=== PATIENT | female | born 1930 | race Caucasian/White ===

== ENCOUNTER 2018-01-27 06:23 | Inpatient (IN) | payer MEDICARE, BC ==
[2018-01-27] MEDS: CEFAZOLIN 2 GM/50 ML (PMX) 50 ML IVPB (05:30)
[2018-01-27] MEDS: TRANEXAMIC ACID 1,000 MG in DEXTROSE 5% 100 ML IVPB (05:30)
[~2018-01-27 06:23] MED LIST: BUPIVACAINE 0.5% (SDV) 30 ML, morphine SULFATE (PF) 8 MG, EPINEPHrine 0.3 MG, KETOROLAC... IRR
[2018-01-27] MEDS: DEXAMETHASONE 1 MG TAB PO (08:16)
[2018-01-27] MEDS: LACTATED RINGER'S 1,000 ML IV* (08:17)
[2018-01-27] MEDS ORDERED: MIDAZOLAM 1 MG/ML 2 ML INJ (09:09)
[2018-01-27] MEDS ORDERED: ROPIVACAINE 0.5 % 30 ML VIAL (09:09)
[2018-01-27] MEDS: POLYMYXIN/BACITRACIN 1L IRRIG (09:18)
[2018-01-27] MEDS: CA CHLORIDE 10% 10 ML SYRINGE (09:18)
[2018-01-27] MEDS: THROMBIN 5000 UNIT VIAL (09:18)
[2018-01-27] MEDS: BUPIVACAINE 0.5%/EPI (SDV) 30 ML INJ (09:18)
[2018-01-27] MEDS ORDERED: SUCCINYLCHOLINE CHLORIDE 100 MG/5 ML SYG IV (09:55)
[2018-01-27] MEDS ORDERED: ROCURONIUM 50 MG INJ (09:55)
[2018-01-27] MEDS ORDERED: PROPOFOL 20 ML (09:55)
[2018-01-27] MEDS ORDERED: SUGAMMADEX SODIUM 200 MG/2 ML VIAL IV (09:55)
[2018-01-27] MEDS ORDERED: CEFAZOLIN 1 GM INJ (09:55)
[2018-01-27] MEDS ORDERED: LIDOCAINE 100 MG SYRINGE (09:55)
[2018-01-27] MEDS ORDERED: hydrALAzine 20 MG INJ (11:27)
[2018-01-27] MEDS ORDERED: DIPHENHYDRAMINE 50 MG INJ IV ×2 (11:30→12:00)
[2018-01-27] MEDS ORDERED: FENTAnyl 50 MCG/ML VIAL IV (11:30)
[2018-01-27] MEDS ORDERED: METOCLOPRAMIDE 10 MG INJ IV (11:30)
[2018-01-27] MEDS ORDERED: ONDANSETRON 4 MG INJ IV ×2 (11:30→12:00)
[2018-01-27] MEDS ORDERED: HYDROmorphONE 1 MG/5 ML IV SYRINGE IV ×2 (11:30)
[2018-01-27] MEDS ORDERED: MEPERIDINE 25 MG INJ IV (11:30)
[2018-01-27] MEDS: CEFAZOLIN 1 GM/50 ML (PMX) 50 ML IVPB ×2 (11:59→20:53)
[2018-01-27] MEDS: DEXAMETHASONE 2 MG TAB PO ×2 (12:00→18:13)
[2018-01-27] MEDS ORDERED: ZOLPIDEM 5 MG TAB PO (12:00)
[2018-01-27] MEDS ORDERED: MAGNESIUM HYDROXIDE 30ML CUP PO (12:00)
[2018-01-27] MEDS ORDERED: KETOROLAC 15 MG INJ IV (12:00)
[2018-01-27] MEDS ORDERED: ACETAMINOPHEN 500 MG TAB PO (12:00)
[2018-01-27] MEDS: TRANEXAMIC ACID 1,000 MG in DEXTROSE 5% 100 ML IV (12:22)
[2018-01-27] MEDS: ATORVASTATIN 20 MG TAB PO (20:53)
[2018-01-27] MEDS: SENNA/DOCUSATE NA (8.6MG/50MG) TAB PO (20:53)
[2018-01-27] MEDS: GABAPENTIN 300 MG CAP PO (20:54)
[2018-01-27] MEDS: morphine 2 MG INJ IV (22:38)
[2018-01-28] MEDS: DEXAMETHASONE 2 MG TAB PO ×2 (00:18→05:43)
[2018-01-28] MEDS: morphine 2 MG INJ IV ×2 (00:35→03:44)
[2018-01-28] MEDS: OXYCODONE/ACETAMINOPHEN (5/325) TAB PO ×3 (01:52→11:26)
[2018-01-28] MEDS: CEFAZOLIN 1 GM/50 ML (PMX) 50 ML IVPB (03:57)
[2018-01-28] MEDS: SENNA/DOCUSATE NA (8.6MG/50MG) TAB PO (08:57)
[2018-01-28] MEDS: ASPIRIN 81 MG TAB PO (08:57)
[2018-01-28] MEDS: VALSARTAN 160 MG TAB PO (08:58)
[2018-01-28] MEDS ORDERED: morphine LIQ (10 MG/5 ML) CUP PO ×2 (15:00)
== END 2018-01-28 12:00 | disposition home health service (06) | DRG 483 ==
LOC: REC 06:23 → MS1 16:30
PROC: 0RRJ00Z Replacement of Right Shoulder Joint with Reverse Ball and Socket Synthetic Substitute, Open Approach (ICD-10-PCS; principal; 2018-01-27 09:14)
DX: M19.211 Secondary osteoarthritis, right shoulder (principal); M75.101 Unspecified rotator cuff tear or rupture of right shoulder, not specified as traumatic
CPT/HCPCS: 73030-RT; 86999; 88304; 88311; 97165